=== PATIENT | male | born 1945 | race Two or more races ===

== ENCOUNTER → 2019-10-28 | Outpatient (CLI) | payer MEDICARE, OTHER ==
[~2019-10-28] MED LIST: ASPI81CH43 GT; MESA800T OR; NEBI5TAB2 PO; ROSU5TAB5 OR; TELM20TA OR; [UNRECOGNIZED DRUG - CODE] IM
[2019-10-28 11:15] VITALS: BP 131/74
--- NOTE | 2019-10-28 11:15 | NUR ---
Patient into clinic for preop appointment, AAOx4, ambulatory, breathing even and unlabored. Patient is having a pacemaker gen change on 10/30/[address] Conklin.
[2019-10-28 11:50] VITALS: BP 140/76
--- NOTE | 2019-10-28 11:50 | NUR ---
Pre-Op Discharge Summary: See e-MAR for any medications given for this visit. Pre-op orders received and carried out per MD of EKG, LABS and prescription for chest xrays given to patient. Patient given a copy of EKG with instructions to go to [facility] out patient for further follow up care including chest xray and covid19 swab.
[2019-10-28 12:00] LABS: Basophils # (auto) 0 10 ^3/uL (0-0.2); Basophils % (auto) 0.6 % (0.0-2.0); Eosinophils # (auto) 0.2 10 ^3/uL (0-0.8); Eosinophils % (auto) 2.5 % (0.0-7.0); Hematocrit 43.8 % (41.0-53.0); Lymphocytes # (auto) 2.2 10 ^3/uL (0.4-5.4); Lymphocytes % (auto) 29.3 % (10.0-50.0); Mean Corpuscular Hemoglobin 27.6 pg (28.0-32.0); Mean Corpuscular Hgb Conc. 31.9 g/dL (32.0-36.0); Mean Corpuscular Volume 86.4 fL (80.0-100.0); Monocytes # (auto) 0.9 10 ^3/uL (0-1.3); Neutrophils # (auto) 4.2 10 ^3/uL (1.6-8.6); Neutrophils % (auto) 55.6 % (37.0-80.0); Platelet Count (auto) 208 10^3/uL (140-450); Red Blood Cells 5.06 10^6/uL (4.5-5.90); White Blood Cell 7.6 10^3/uL (4.4-10.8)
[2019-10-28 12:09] LABS: INR 1.01 (0.9-1.15); Partial Thromboplastin Time 24.7 sec (23.64-32.05)
[2019-10-28 12:59] LABS: Calcium 9.6 mg/dL (8.5-10.1); Potassium 4.8 mmol/L (3.5-5.1)
[2019-10-28 13:02] LABS: BUN/Creatinine Ratio 16.8
== END | disposition home or self-care (01) ==
LOC: Rad HDHVI 11:16
PROVIDERS: ATTEND Internal Medicine Cardiovascular Disease
DX: Z01.812 Encounter for preprocedural laboratory examination (principal); I10 Essential (primary) hypertension; D64.9 Anemia, unspecified; R79.1 Abnormal coagulation profile
CPT/HCPCS: 36415; 80048; 85025; 85610; 85730; 93005; G0463

== ENCOUNTER 2019-10-30 10:59 | Day surgery (SDC) | payer MEDICARE, OTHER ==
[~2019-10-30] VITALS: Ht 175.3 cm; Wt 87.1 kg
[~2019-10-30 10:59] MED LIST changes: -MESA800T OR; -ROSU5TAB5 OR; -TELM20TA OR
[2019-10-30] MEDS ORDERED: LIDOCAINE 2%HCL (LOCAL ANESTH.) INJ 20ML MDV ONE ×2 (11:34→12:10)
[2019-10-30] MEDS ORDERED: VANCOMYCIN HCL 1000 MG VL ONE (12:10)
[2019-10-30] MEDS ORDERED: VANCOMYCIN 1GM/250ML 250 ML IV ONE (12:11)
[2019-10-30] MEDS ORDERED: ONDANSETRON HCL 4 MG/2 ML VIAL ONE (13:05)
[2019-10-30] MEDS ORDERED: ACETAMINOPHEN 325 MG TAB PO PRN (13:15)
[2019-10-30] MEDS ORDERED: HYDROcodone-ACET 5/325MG TAB PO PRN (13:15)
[2019-10-30] MEDS ORDERED: ONDANSETRON HCL 4 MG/2 ML VIAL IV ONE (13:15)
== END 2019-10-30 15:22 | disposition home or self-care (01) ==
LOC: CATH 10:59
PROVIDERS: ATTEND Internal Medicine Cardiovascular Disease
DX: Z45.010 Encounter for checking and testing of cardiac pacemaker pulse generator [battery] (principal); I10 Essential (primary) hypertension; Z95.5 Presence of coronary angioplasty implant and graft; Z11.59 Encounter for screening for other viral diseases; Z88.0 Allergy status to penicillin
CPT/HCPCS: 33228; C1785; J2405; J3370; U0003; 99152

== ENCOUNTER → 2019-11-18 | Outpatient (CLI) | payer MEDICARE, OTHER ==
[2019-11-18 16:02] LABS: Basophils # (auto) 0.1 10 ^3/uL (0-0.2); Basophils % (auto) 0.7 % (0.0-2.0); Eosinophils # (auto) 0.2 10 ^3/uL (0-0.8); Eosinophils % (auto) 2.4 % (0.0-7.0); Hematocrit 46.9 % (41.0-53.0); Hemoglobin 15.2 g/dL (13.5-17.5); Lymphocytes # (auto) 2.3 10 ^3/uL (0.4-5.4); Lymphocytes % (auto) 31.5 % (10.0-50.0); Mean Corpuscular Hemoglobin 28.3 pg (28.0-32.0); Mean Corpuscular Hgb Conc. 32.4 g/dL (32.0-36.0); Mean Corpuscular Volume 87.3 fL (80.0-100.0); Monocytes # (auto) 0.8 10 ^3/uL (0-1.3); Monocytes % (auto) 10.7 % (0.0-12.0); Neutrophils % (auto) 54.7 % (37.0-80.0); Nucleated Red Blood Cells % 0.1 %; Platelet Count (auto) 215 10^3/uL (140-450); Red Blood Cells 5.37 10^6/uL (4.5-5.90); Red Cell Distribution Width 14.8 % (11.8-14.3); White Blood Cell 7.4 10^3/uL (4.4-10.8)
[2019-11-18 16:09] LABS: Albumin 3.9 g/dL (3.4-5.0); Magnesium 2.7 mg/dL (1.6-2.6)
[2019-11-18 16:14] LABS: BUN/Creatinine Ratio 13.1; Bilirubin, Total 0.4 mg/dL (0.2-1.0); Total Protein 8.2 g/dL (6.4-8.2)
== END | disposition home or self-care (01) ==
LOC: CHF HDHVI 12:06
PROVIDERS: ATTEND Internal Medicine Cardiovascular Disease
DX: C61 Malignant neoplasm of prostate (principal); E03.9 Hypothyroidism, unspecified; K90.9 Intestinal malabsorption, unspecified; N39.0 Urinary tract infection, site not specified; D51.9 Vitamin B12 deficiency anemia, unspecified; Z00.00 Encounter for general adult medical examination without abnormal findings; Z79.899 Other long term (current) drug therapy
CPT/HCPCS: 36415; 80053; 80061; 82306; 83036; 83735; 84436; 84443; 85025

== ENCOUNTER → 2020-05-12 | Outpatient (CLI) | payer MEDICARE, OTHER ==
[2020-05-12 15:37] LABS: Albumin 3.7 g/dL (3.4-5.0); Calcium 9.5 mg/dL (8.5-10.1); Potassium 4.8 mmol/L (3.5-5.1)
[2020-05-12 15:42] LABS: BUN/Creatinine Ratio 10.3; Bilirubin, Total 0.3 mg/dL (0.2-1.0); Total Protein 8.4 g/dL (6.4-8.2)
== END | disposition home or self-care (01) ==
LOC: LAB 12:03
PROVIDERS: ATTEND Internal Medicine Cardiovascular Disease
DX: C61 Malignant neoplasm of prostate (principal); E78.00 Pure hypercholesterolemia, unspecified; I10 Essential (primary) hypertension; E03.9 Hypothyroidism, unspecified; R74.01 Elevation of levels of liver transaminase levels
CPT/HCPCS: 36415; 80053; 80061; 83615; 84439; 84443

== ENCOUNTER → 2020-11-22 | Outpatient (CLI) | payer MEDICARE, OTHER ==
[2020-11-22 11:28] LABS: Basophils # (auto) 0 10 ^3/uL (0-0.2); Basophils % (auto) 0.8 % (0.0-2.0); Eosinophils # (auto) 0.3 10 ^3/uL (0-0.8); Eosinophils % (auto) 5.8 % (0.0-7.0); Hematocrit 39.8 % (41.0-53.0); Hemoglobin 13.1 g/dL (13.5-17.5); Lymphocytes # (auto) 2.2 10 ^3/uL (0.4-5.4); Lymphocytes % (auto) 37.9 % (10.0-50.0); Mean Corpuscular Hemoglobin 28.1 pg (28.0-32.0); Mean Corpuscular Volume 85.2 fL (80.0-100.0); Monocytes # (auto) 0.8 10 ^3/uL (0-1.3); Monocytes % (auto) 13.3 % (0.0-12.0); Neutrophils # (auto) 2.5 10 ^3/uL (1.6-8.6); Neutrophils % (auto) 42.2 % (37.0-80.0); Nucleated Red Blood Cells % 0.1 %; Red Blood Cells 4.67 10^6/uL (4.5-5.90); Red Cell Distribution Width 14.1 % (11.8-14.3); White Blood Cell 5.8 10^3/uL (4.4-10.8)
[2020-11-22 11:29] LABS: Urine Blood Negative /uL (Negative); Urine Specific Gravity 1.012 (1.001-1.035)
[2020-11-22 11:37] LABS: Albumin 3.3 g/dL (3.4-5.0); Potassium 4.4 mmol/L (3.5-5.1)
[2020-11-22 11:44] LABS: BUN/Creatinine Ratio 11.6; Bilirubin, Total 0.3 mg/dL (0.2-1.0); Calcium 8.8 mg/dL (8.5-10.1); Total Protein 7.3 g/dL (6.4-8.2)
[2020-11-22 11:50] LABS: Free T4 (Free Thyroxine) 1.06 ng/dL (0.89-1.76)
== END | disposition home or self-care (01) ==
LOC: LAB 07:19
PROVIDERS: ATTEND Internal Medicine Cardiovascular Disease
DX: D51.3 Other dietary vitamin B12 deficiency anemia (principal); C61 Malignant neoplasm of prostate; I10 Essential (primary) hypertension; E55.9 Vitamin D deficiency, unspecified; E11.9 Type 2 diabetes mellitus without complications; D64.9 Anemia, unspecified; R00.2 Palpitations; R53.1 Weakness; R30.0 Dysuria
CPT/HCPCS: 36415; 80053; 80061; 81003; 82306; 82607; 83036; 84403; 84439; 84443; 85025

== ENCOUNTER → 2021-06-15 | Outpatient (CLI) | payer MEDICARE, OTHER ==
[2021-06-15 11:13] LABS: Basophils # (auto) 0.1 10 ^3/uL (0-0.2); Basophils % (auto) 0.8 % (0.0-2.0); Eosinophils # (auto) 0.4 10 ^3/uL (0-0.8); Eosinophils % (auto) 5.4 % (0.0-7.0); Hematocrit 43.4 % (41.0-53.0); Hemoglobin 13.9 g/dL (13.5-17.5); Lymphocytes # (auto) 2.3 10 ^3/uL (0.4-5.4); Lymphocytes % (auto) 34.2 % (10.0-50.0); Mean Corpuscular Hemoglobin 27.7 pg (28.0-32.0); Mean Corpuscular Volume 86.6 fL (80.0-100.0); Monocytes # (auto) 0.9 10 ^3/uL (0-1.3); Monocytes % (auto) 13.4 % (0.0-12.0); Neutrophils # (auto) 3.1 10 ^3/uL (1.6-8.6); Neutrophils % (auto) 46.2 % (37.0-80.0); Nucleated Red Blood Cells % 0.1 %; Red Blood Cells 5.01 10^6/uL (4.5-5.90); White Blood Cell 6.7 10^3/uL (4.4-10.8)
[2021-06-15 11:32] LABS: Potassium 4.7 mmol/L (3.5-5.1)
[2021-06-15 11:58] LABS: Albumin 3.7 g/dL (3.4-5.0); BUN/Creatinine Ratio 12.5; Bilirubin, Total 0.2 mg/dL (0.2-1.0); Total Protein 7.8 g/dL (6.4-8.2)
== END | disposition home or self-care (01) ==
LOC: LAB 07:26
PROVIDERS: ATTEND Internal Medicine Cardiovascular Disease
DX: C61 Malignant neoplasm of prostate (principal); E11.9 Type 2 diabetes mellitus without complications; E78.5 Hyperlipidemia, unspecified; I10 Essential (primary) hypertension
CPT/HCPCS: 36415; 80053; 80061; 83036; 85025

== ENCOUNTER → 2022-02-05 | Outpatient (CLI) | payer MEDICARE, OTHER | END | disposition home or self-care (01) | LOC: Rad HDHVI 08:31 | PROVIDERS: ATTEND Internal Medicine Cardiovascular Disease | DX: J32.9 Chronic sinusitis, unspecified (principal); J32.2 Chronic ethmoidal sinusitis | CPT/HCPCS: 70486 ==

== ENCOUNTER → 2022-02-12 | Outpatient (CLI) | payer MEDICARE, OTHER ==
[2022-02-12 11:51] LABS: Basophils # (auto) 0.1 10 ^3/uL (0-0.2); Basophils % (auto) 0.7 % (0.0-2.0); Eosinophils # (auto) 0.4 10 ^3/uL (0-0.8); Eosinophils % (auto) 5.1 % (0.0-7.0); Hematocrit 45.7 % (41.0-53.0); Hemoglobin 14.9 g/dL (13.5-17.5); Lymphocytes # (auto) 2.6 10 ^3/uL (0.4-5.4); Lymphocytes % (auto) 33.2 % (10.0-50.0); Mean Corpuscular Hemoglobin 27.7 pg (28.0-32.0); Mean Corpuscular Hgb Conc. 32.5 g/dL (32.0-36.0); Mean Corpuscular Volume 85.2 fL (80.0-100.0); Monocytes % (auto) 12.4 % (0.0-12.0); Neutrophils # (auto) 3.8 10 ^3/uL (1.6-8.6); Neutrophils % (auto) 48.6 % (37.0-80.0); Nucleated Red Blood Cells % 0.1 %; Red Blood Cells 5.37 10^6/uL (4.5-5.90); Red Cell Distribution Width 13.4 % (11.8-14.3); White Blood Cell 7.8 10^3/uL (4.4-10.8)
[2022-02-12 11:53] LABS: Urine Blood Negative /uL (Negative); Urine Specific Gravity 1.008 (1.001-1.035)
[2022-02-12 11:59] LABS: Calcium 9.6 mg/dL (8.5-10.1); Potassium 4.6 mmol/L (3.5-5.1)
[2022-02-12 12:04] LABS: BUN/Creatinine Ratio 13.5; Bilirubin, Total 0.4 mg/dL (0.2-1.0); Total Protein 8.5 g/dL (6.4-8.2)
[2022-02-12 12:11] LABS: INR 0.99 (0.9-1.15); Partial Thromboplastin Time 27.2 sec (24.6-33.4)
== END | disposition home or self-care (01) ==
LOC: Rad HDHVI 08:46
PROVIDERS: ATTEND Internal Medicine Cardiovascular Disease
DX: I70.0 Atherosclerosis of aorta (principal); C61 Malignant neoplasm of prostate; M47.814 Spondylosis without myelopathy or radiculopathy, thoracic region; R79.1 Abnormal coagulation profile; Z01.818 Encounter for other preprocedural examination
CPT/HCPCS: 36415; 71046; 80053; 81003; 85025; 85610; 85730

== ENCOUNTER 2022-02-19 06:39 | Day surgery (SDC) | payer MEDICARE, OTHER ==
[~2022-02-19] VITALS: Ht 175.3 cm; Wt 85.3 kg
[~2022-02-19 06:39] MED LIST changes: -ASPI81CH43 GT; +EZET10TA22 PO; +LATA0.0019 OP; +METO-6 PO; +MULT-688 PO; -NEBI5TAB2 PO; -[UNRECOGNIZED DRUG - CODE] IM
[2022-02-19] MEDS ORDERED: COCAINE HCL 4% TOP SOL 4ML TOP ONE (06:53)
[2022-02-19] MEDS ORDERED: EPINEPHrine HCL 1 MG/1 ML AMP ONE (06:54)
[2022-02-19] MEDS ORDERED: LIDOCAINE 1% (LOCAL ANESTH.) PF 5ml SDV ONE (06:54)
[2022-02-19] MEDS ORDERED: LIDOCAINE W/ EPINEPHRINE 2% INJ 20ML VIAL ONE (07:06)
[2022-02-19] MEDS ORDERED: ROCURONIUM 10MG/ML 10ML VIAL IV ONE (07:40)
[2022-02-19] MEDS ORDERED: fentaNYL CITRATE 100 MCG/2 ML VL ONE (07:40)
[2022-02-19] MEDS ORDERED: MIDAZOLAM HCL 2MG/2ML 2ml VIAL (1mg/ml) ONE (07:40)
[2022-02-19] MEDS ORDERED: ONDANSETRON HCL 4 MG/2 ML VIAL ONE (07:41)
[2022-02-19] MEDS ORDERED: LIDOCAINE 2% (LOCAL ANESTH.) PF 5ml SDV ONE (07:41)
[2022-02-19] MEDS ORDERED: PROPOFOL 10 MG/ML 20 ML IV ONE (07:42)
[2022-02-19] MEDS ORDERED: BACITRACIN TOP OINT 1 UD PKG TOP ONE (08:38)
[2022-02-19] MEDS ORDERED: HYDROmorphone HCL 2 MG/ML VL/or syr IV PRN (09:00)
[2022-02-19] MEDS ORDERED: GLYCOPYRROLATE 0.2 MG/ML 1ML VIAL ONE (09:00)
[2022-02-19] MEDS ORDERED: ONDANSETRON HCL 4 MG/2 ML VIAL IV PRN (09:00)
[2022-02-19] MEDS ORDERED: NEOSTIGMINE 1 MG/ML INJ (10mg/10ML VIAL) ONE (09:00)
[2022-02-19] MEDS ORDERED: FAMOTIDINE (10MG/ML) 2ML VL IV ONE ×3 (10:51→11:00)
[2022-02-19 10:54] VITALS: BP 139/62
[2022-02-19] MEDS ORDERED: ePHEDrine SULFATE 50 MG/ML AMP IM ONE (11:00)
== END 2022-02-19 11:06 | disposition home or self-care (01) ==
LOC: SUR 06:39
PROVIDERS: ATTEND Otolaryngology
DX: J32.4 Chronic pansinusitis (principal); J33.8 Other polyp of sinus; J34.89 Other specified disorders of nose and nasal sinuses; J32.2 Chronic ethmoidal sinusitis; J32.0 Chronic maxillary sinusitis; J98.8 Other specified respiratory disorders; J33.0 Polyp of nasal cavity
CPT/HCPCS: 31255; 88305; 88311; J2001; J2250; J2405; J2704; J3010; J3490; U0003; J0171

== ENCOUNTER → 2022-05-15 | Outpatient (CLI) | payer MEDICARE, OTHER ==
[2022-05-15 15:42] LABS: Basophils # (auto) 0.1 10 ^3/uL (0-0.2); Basophils % (auto) 0.8 % (0.0-2.0); Eosinophils # (auto) 0.3 10 ^3/uL (0-0.8); Eosinophils % (auto) 4.9 % (0.0-7.0); Hematocrit 40.9 % (41.0-53.0); Lymphocytes # (auto) 1.9 10 ^3/uL (0.4-5.4); Lymphocytes % (auto) 30.9 % (10.0-50.0); Mean Corpuscular Hgb Conc. 31.8 g/dL (32.0-36.0); Mean Corpuscular Volume 84.9 fL (80.0-100.0); Monocytes # (auto) 0.8 10 ^3/uL (0-1.3); Monocytes % (auto) 13.5 % (0.0-12.0); Neutrophils # (auto) 3.1 10 ^3/uL (1.6-8.6); Neutrophils % (auto) 49.9 % (37.0-80.0); Nucleated Red Blood Cells % 0.1 %; Red Blood Cells 4.82 10^6/uL (4.5-5.90); Red Cell Distribution Width 14.5 % (11.8-14.3); White Blood Cell 6.3 10^3/uL (4.4-10.8)
[2022-05-15 15:50] LABS: Potassium 4.5 mmol/L (3.5-5.1)
[2022-05-15 15:56] LABS: Free T4 (Free Thyroxine) 0.94 ng/dL (0.89-1.76)
[2022-05-15 15:58] LABS: Albumin 3.9 g/dL (3.4-5.0); BUN/Creatinine Ratio 13.8; Bilirubin, Total 0.4 mg/dL (0.2-1.0); Calcium 8.9 mg/dL (8.5-10.1); Total Protein 7.7 g/dL (6.4-8.2)
== END | disposition home or self-care (01) ==
LOC: Rad HDHVI 07:53
PROVIDERS: ATTEND Internal Medicine Cardiovascular Disease
DX: I10 Essential (primary) hypertension (principal); E55.9 Vitamin D deficiency, unspecified
CPT/HCPCS: 36415; 80053; 80061; 82306; 82607; 83036; 84403; 84439; 84443; 85025

== ENCOUNTER → 2022-11-22 | Outpatient (CLI) | payer MEDICARE, OTHER ==
[~2022-11-22] MED LIST changes: +IOHEXOL 350 MG/ML 100ML IJ ONE; -LATA0.0019 OP; +LATA0.008 OP; +READI-CAT 2 (BARIUM SULF)(VANILLA SMOOTHIE) 450ML ONE
[2022-11-22 08:22] VITALS: BP 134/73; PULSE 65; RESP 16; O2SAT 100
[2022-11-22 09:38] VITALS: BP 140/70; PULSE 65; RESP 16; O2SAT 100
== END | disposition home or self-care (01) ==
LOC: Rad HDHVI 08:14
PROVIDERS: ATTEND Internal Medicine Cardiovascular Disease
DX: R31.9 Hematuria, unspecified (principal)
CPT/HCPCS: 74177; G0463; Q9967

== ENCOUNTER → 2024-01-17 | Outpatient (CLI) | payer MEDICARE, OTHER ==
[~2024-01-17] VITALS: Ht 175.3 cm; Wt 79.8 kg
[~2024-01-17] MED LIST changes: -IOHEXOL 350 MG/ML 100ML IJ ONE; -READI-CAT 2 (BARIUM SULF)(VANILLA SMOOTHIE) 450ML ONE
== END | disposition home or self-care (01) ==
LOC: Rad HDHVI 08:03
PROVIDERS: ATTEND Internal Medicine Cardiovascular Disease
DX: I10 Essential (primary) hypertension (principal); E78.2 Mixed hyperlipidemia; I49.5 Sick sinus syndrome; I25.10 Atherosclerotic heart disease of native coronary artery without angina pectoris; Z95.0 Presence of cardiac pacemaker
CPT/HCPCS: 78452; 93017; 96374; A9500

== ENCOUNTER → 2024-01-21 | Outpatient (CLI) | payer MEDICARE, OTHER ==
[~2024-01-21] MED LIST changes: +ASPI-498 PO; +FLAX1CAP9 PO; +IOHEXOL 350 MG/ML 100ML IJ ONE; +MAGN400T40 PO; +OMEG-20 PO
[2024-01-21 10:30] VITALS: BP 133/61; PULSE 65; RESP 18; O2SAT 96
[2024-01-21 10:51] VITALS: BP 124/73; PULSE 65; RESP 18; O2SAT 96
== END | disposition home or self-care (01) ==
LOC: CHF HDHVI 10:34
PROVIDERS: ATTEND Internal Medicine Cardiovascular Disease
DX: I48.0 Paroxysmal atrial fibrillation (principal); I44.2 Atrioventricular block, complete; R94.31 Abnormal electrocardiogram [ECG] [EKG]; C61 Malignant neoplasm of prostate; D68.59 Other primary thrombophilia; E78.5 Hyperlipidemia, unspecified; I49.5 Sick sinus syndrome; Z85.46 Personal history of malignant neoplasm of prostate
CPT/HCPCS: 93005; G0463; 36415; 80048; 85025; 85610; 85730

== ENCOUNTER → 2024-05-22 | Outpatient (CLI) | payer MEDICARE, OTHER ==
[~2024-05-22] MED LIST changes: -IOHEXOL 350 MG/ML 100ML IJ ONE
--- NOTE | 2024-05-22 14:14 | DVHSR ---
APPROVED REPORT EXAM: Two-dimensional and M-mode echocardiogram with Doppler and color Doppler. Surgery/Intervention Pacemaker: DIMENSIONS LVDd5.1 (3.8-5.7cm)LA (2D)4.4 (1.9-4.0cm)Aortic Root2.4 (2.0-3.7cm) LVDs4.1 (2.5-4.0cm)LA (MM) (1.9-4.0cm)Aortic Cusp Exc1.0 (1.5-2.0cm) EF (%) 40.0 (55-70%)Rt. Atrium4.4 (1.9-4.0cm)Asc. Aorta cm IVSd1.3 (0.7-1.1cm)RV (D) (1.8-2.4cm) PWd1.1 (0.7-1.1cm) Mitral Valve MitralMitral Stenosis E wave1.80m/sMV Mean GR.mmHg A wave0.80m/sMV Peak GR.mmHg E/A ratio2.32D MVAcm2 Aortic Valve Aortic ValveAortic Stenosis V10.60m/Rashawn Mean GR.30mmHg V23.50m/Rashawn Peak GR.51mmHg LVOT Diameter2.1 (1.8-2.4cm)Doppler AVA0.59cm2 AI P 1/2 Kbrr333.15ms Pulmonic Valve V20.60m/s Tricuspid Valve TR Velocity4.00m/s [id number] LEFT VENTRICLE The left ventricle is normal size. There is mild asymmetric left ventricular hypertrophy. The Ejection Fraction is 35-45%. RIGHT VENTRICLE The right ventricle is normal size. ATRIA The left atrium is enlarged. The right atrium is enlarged. The interatrial septum is intact with no evidence for an atrial septal defect. MITRAL VALVE There is mitral annular calcification. Mitral regurgitation is mild to moderate. PULMONIC VALVE The pulmonic valve is not well visualized. There is trace to mild pulmonic valvular regurgitation. TRICUSPID VALVE The tricuspid valve is grossly normal. There is severe tricuspid regurgitation. Right ventricular systolic pressure is greater than 60 mmHg. There is moderate pulmonary hypertension. AORTIC VALVE The aortic valve is calcified. There is moderate aortic regurgitation. There is moderate to severe valvular aortic stenosis. Calculated aortic valve area is 0.8 cm2 with maximum pressure gradient of 50 mmHg and mean pressure g radient of 30 mmHg. GREAT VESSELS The aortic root is normal size. PERICARDIAL EFFUSION There is no pericardial effusion. Conclusion LVH EF 40-45% SEVERE SEVERE PAH LAE [place]
== END | disposition home or self-care (01) ==
LOC: Rad HDHVI 07:53
PROVIDERS: ATTEND Internal Medicine Cardiovascular Disease
DX: I08.8 Other rheumatic multiple valve diseases (principal); I11.9 Hypertensive heart disease without heart failure; I27.20 Pulmonary hypertension, unspecified; Z95.0 Presence of cardiac pacemaker
CPT/HCPCS: 93306

== ENCOUNTER 2024-09-18 10:16 | Outpatient (CLI) | payer MEDICARE, OTHER | END 2024-09-18 17:00 | disposition home or self-care (01) | LOC: Rad HDHVI 10:16 | PROVIDERS: ATTEND Internal Medicine Cardiovascular Disease | DX: M85.88 Other specified disorders of bone density and structure, other site (principal); D55.9 Anemia due to enzyme disorder, unspecified | CPT/HCPCS: 77078 ==

== ENCOUNTER → 2024-12-04 | Outpatient (CLI) | payer MEDICARE, OTHER ==
[2024-12-04 10:35] VITALS: BP 109/56; PULSE 67; RESP 16; O2SAT 96
[2024-12-04 10:50] VITALS: BP 98/67; PULSE 65; RESP 16; O2SAT 96
--- NOTE | 2024-12-04 11:46 | DVH ---
EXAM: XY CHEST TWO VIEWS ROUTINE CLINICAL HISTORY: pain COMPARISON: XY CHEST TWO VIEWS ROUTINE on DOS: 09/12/23, CXR2 on DOS: 02/12/22, CHEST TWO VIEWS ROUTIN E on DOS: 02/12/22 TECHNIQUE: Frontal and lateral view of the chest was obtained FINDINGS: Lines and Tubes: Cardiac pacemaker projects over left chest wall. Lungs: No focal consolidation. Pleura: No effusion. No pneumothorax. Cardiomediastinal contours: Unremarkable. Atherosclerotic vascular calcifications of the thoracic ao rta are noted. Bones: No acute osseous abnormality. IMPRESSION: No acute cardiopulmonary disease.
== END | disposition home or self-care (01) ==
LOC: Rad HDHVI 10:35
PROVIDERS: ATTEND Internal Medicine Cardiovascular Disease
DX: Z01.818 Encounter for other preprocedural examination (principal); I10 Essential (primary) hypertension; I27.9 Pulmonary heart disease, unspecified; I70.0 Atherosclerosis of aorta; K57.90 Diverticulosis of intestine, part unspecified, without perforation or abscess without bleeding; R42 Dizziness and giddiness; Z95.0 Presence of cardiac pacemaker
CPT/HCPCS: 71046; 93005; G0463

== ENCOUNTER 2024-12-10 06:56 | Day surgery (SDC) | payer MEDICARE, OTHER ==
[2024-12-07 12:33] LABS: INR 1.02 (0.9-1.15); Partial Thromboplastin Time 25.9 SEC (24.5-34.5); Prothrombin Time 10.8 sec (9.3-11.8)
[~2024-12-10] VITALS: Ht 175.3 cm; Wt 79.4 kg
[2024-12-10] VITALS (7 sets, daily range): BP systolic 116–149; BP diastolic 69–87; PULSE 65–77; RESP 12–18; O2SAT 98–100
[~2024-12-10 06:56] MED LIST changes: -ASPI-498 PO; +CLOP75TA28 PO; +LATA0.008 EACHEYE; -LATA0.008 OP; -MAGN400T40 PO; +[UNRECOGNIZED DRUG - CODE] PO
[2024-12-10] MEDS: LIDOCAINE 2%HCL (LOCAL ANESTH.) INJ 20ML MDV ONE ×2 (07:21→08:47)
[2024-12-10] MEDS: IOHEXOL 350 MG/ML 100ML IJ ONE ×2 (07:21→09:54)
[2024-12-10] MEDS: MIDAZOLAM HCL 2MG/2ML 2ml VIAL (1mg/ml) ONE (08:19)
[2024-12-10] MEDS: VERAPAMIL 2.5MG/ML INJ 2ML VIAL IV ONE (08:19)
[2024-12-10] MEDS: fentaNYL CITRATE 100 MCG/2 ML VL ONE (08:19)
[2024-12-10] MEDS: ANGIOMAX 250 MG VIAL IV ONE (08:19)
[2024-12-10] MEDS: SODIUM CHL 0.9% 0 ML ONE (08:20)
--- NOTE | 2024-12-10 11:16 | DVHHP ---
ADMIT DATE: 12/10/2024 HISTORY OF PRESENT ILLNESS: The patient who is 79 years old, history of hypertension, hyperlipidemia, history of prostate CA, history of angioplasty with stent placement in 12/2023, 2 stents were placed. The patient now has sign and symptom complex of increasing shortness of breath, lethargy and fatigue and ejection fraction is diminished. The patient underwent angioplasty and since then EF has improved. Now because of ongoing chest pain and pressure-like sensation, it is felt that the patient should undergo selective left and right coronary angiography, ventriculogram, and right heart catheterization as well. Risks and benefits were explained to the patient. PAST MEDICAL HISTORY: The patient with metastatic prostate CA undergoing chemotherapy, radiation therapy, and surgical resection of the prostate as well. He denies any diabetes. No history of renal insufficiency. CURRENT MEDICATIONS: Include Plavix and metoprolol. SOCIAL HISTORY: No history of tobacco use. REVIEW OF SYSTEMS: No history of any lung disease as well. No history of any neurological symptoms such as TIA or CVA. PHYSICAL EXAMINATION: VITAL SIGNS: Blood pressure is 142/80, pulse 70, O2 saturation 94% on room air. HEENT: Pupils are reactive. Funduscopic exam is benign. Sclerae are anicteric. Extraocular muscles are intact. Tympanic membranes are negative. Oral mucosa moist. Posterior pharynx without any exudates. NECK: Supple. Carotid pulses are 2+ and symmetrical. Normal upstroke and contour. PULMONARY: Clear to auscultation. CARDIOVASCULAR: Regular rate without S3, without S4. PMI is not displaced. ABDOMEN: Soft, nontender. Normal bowel sounds. Stool guaiac is negative. Liver approximately 5 cm. No epigastric tenderness. No suprapubic tenderness. No CVA tenderness. NEUROLOGIC: The patient is intact. EXTREMITIES: 2+ pulses. ASSESSMENT AND PLAN: * This patient with a previous history of coronary artery disease status post angioplasty, stent placement x 2, now with ongoing chest pain, shortness of breath, now to undergo left and right heart catheterization. * The patient also has component of aortic valve stenosis and needs to be monitored as well. Rubin Blake MD SA/EMELINA/RICHARD TID: [id number] RECEIPT: [id number]
--- NOTE | 2024-12-10 11:17 | DVHOP ---
DATE OF SURGERY: 12/10/2024 PROCEDURES: * Left and right heart catheterization. * Ventriculogram. * [place] catheterization. * Right iliac angiography. * Conscious sedation. DESCRIPTION OF PROCEDURE: The patient was prepped and draped under sterile condition. Xylocaine 1% used to anesthetize the right wrist. Using a micropuncture needle, right wrist was cannulated via Seldinger technique, a 6-Maori sheath in the right radial artery. Then, radial vasodilatation cocktail was used. Then, using a 5-Maori [place] diagnostic catheter, selective left and right coronary artery angiography was performed. Then, using a 6-Maori pigtail catheter, ventriculogram was done but it was hard to cross the artery with regular pigtail. We had to use a stiff-angled Terumo wire and an AL1 diagnostic catheter to cross the aortic valve. Following the aortic valve, the patient had a marked elevation in LVEDP and also gradient across the aortic valve as well. There were no complications. The patient tolerated this. Similarly, using right brachial vein, right heart catheterization was performed. There were no complications. The patient tolerated the procedure well. RESULTS: * Left main patent. * Left anterior descending artery had a proximal 30% narrowing with an FFR of 0.84 with no other flow-restrictive lesion. * Circumflex artery mild diffuse disease without any flow-restrictive lesion. * Right coronary artery nondominant vessel without any flow-restrictive lesion. * Ventriculogram shows an EF around 55% with an LVEDP markedly elevated at 39 mmHg with a 22 mm gradient across the aortic valve. * Right heart catheterization: RA pressure is elevated at 10, RV pressure of 56/18, capillary wedge pressure of 32, and PA pressure of 56/22. Left ventricular systolic pressure was elevated at 148. Thus, the patient with right-sided elevated pressures, left-sided elevated pressures. Aggressive antihypertensive therapy should be initiated. The patient does not have however any significant coronary artery disease. Previous site of stent placements were patent. Conservative medical management will be instituted with serial echo should be done to monitor the patient's aortic valve. Rubin Blake MD SA/PRABHJOT TID: [id number] RECEIPT: [id number]
--- NOTE | 2024-12-10 11:28 | DVHDS ---
DATE OF DISCHARGE: 12/10/2024 DISCHARGE DIAGNOSES: The patient with elevated LVEDP of 39 mmHg with elevated left ventricular systolic pressure of 148. There is a 22 mm gradient across the aortic valve as well. Coronary anatomy, however, shows no significant coronary artery disease. Previous site of stent placements were patent. There is about a 30% narrowing of the left anterior descending artery. FFR of the left anterior descending artery was 0.84. Conservative medical management. We will continue to follow the patient. Stable at the time of discharge. DISPOSITION: Home. ACTIVITIES: As instructed. DIET: Will be 2-gram sodium diet. Rubin Blake MD SA/RICHARD TID: [id number] RECEIPT: [id number]
== END 2024-12-10 11:50 | disposition short-term general hospital (02) ==
LOC: CATH 06:56
PROVIDERS: ATTEND Internal Medicine Cardiovascular Disease
DX: R06.02 Shortness of breath (principal); I25.10 Atherosclerotic heart disease of native coronary artery without angina pectoris; I11.0 Hypertensive heart disease with heart failure; I50.9 Heart failure, unspecified; I35.0 Nonrheumatic aortic (valve) stenosis; E78.5 Hyperlipidemia, unspecified; Z95.5 Presence of coronary angioplasty implant and graft; Z85.46 Personal history of malignant neoplasm of prostate; Z88.0 Allergy status to penicillin
CPT/HCPCS: 0523T; 36415; 85610; 85730; 93460; C1769; C1887; C1894; J1644; J7030; Q9967; 99152; J2250